=== PATIENT | female | born 1935 | race Caucasian/White ===

== ENCOUNTER → 2016-07-31 | Outpatient (CLI) | payer MEDICARE ==
[~2016-07-31] MED LIST: ACET-2267 PO; ATOR40TA PO; GLUC-144 PO; KCL20TCR PO; MULT-608 PO; NAPR250T34 PO; NF-ESOM40C PO; PANT20TA PO; SCR1T1 PO; SRTR100T PO; VITA1CAP21 PO
--- OUTSIDE RECORDS SUMMARY | 2016-07-31 10:32 | XMS REPORT | Continuity of Care Document ---
Author Author [facility] Organization [facility] Address Unknown Phone Unavailable Care Team Providers Care Battery Charger Name Role Phone JENNY ARREGUIN MD PCP Insurance Providers Payer Name Policy Number Subscriber Name Relationship [employer] Gold Choice [id number] Yuko Rivera 19 Self / Same As Patient Advance Directives Directive Response Recorded Date/Time Advance Directives No 12/26/14 12:08pm Health Care Power of Vacation Sales Advisor No 12/26/14 12:08pm Organ Donor No 12/26/14 12:08pm Resuscitation Status Full Code 12/26/14 12:08pm Problems No known problems or medical conditions. Medications Medication Dose Route Sig Days/Qty Instructions Order Date Discontinued Date Status Sertraline HCl 100 Mg PO DAILY 12/31/09 Active Esomeprazole Magnesium 1 Cap PO DAILY 12/31/09 12/26/14 Discontinued Atorvastatin Calcium 1 Each PO DAILY 12/31/09 12/26/14 Discontinued Multivitamins 1 Tab PO DAILY 12/31/09 12/26/14 Discontinued Naproxen 500 Mg PO TWICE A DAY 12/31/09 12/28/14 Discontinued Vitamin B Complex 1 Cap PO DAILY 12/26/14 12/28/14 Discontinued Potassium Chloride 40 Meq PO DAILY 60 Qty 12/26/14 Active Pantoprazole Sodium 40 Mg PO DAILY 90 Qty 12/27/14 Active Sucralfate 1 Gm PO FOUR TIMES DAILY 14 Days 12/27/14 Active Social History Social History Problem Response Recorded Date/Time Alcohol Use Denies Use 12/26/2014 1:57pm Recreational Drug Use No 12/26/2014 1:57pm Recent Foreign Travel No 12/26/2014 12:15pm Recent Infectious Disease Exposure No 12/26/2014 12:15pm Hospitalization with Isolation Denies 12/28/2014 11:17am Smoking Status Former Smoker 12/26/2014 1:57pm Do you dip or chew tobacco? No 12/26/2014 12:08pm Query Response Start Date Stop Date Smoking Status Former Smoker Hospital Discharge Instructions Patient Instructions Physician Instructions New, Converted, or Re-Newed RX: RX on Chart Follow Up Appt in 8 weeks Activity as tolerated High Fiber Diet 25g or more per day Avoid Alcohol, Caffeine, Spicy [place] and Acid foods. Drink 64 fluid oz or more of fluids per day. Symptoms to Report: Fever over 101 degree F, Nausea/Vomiting If any problems/questions: Contact your physician or go to Emergency Room Plan of Care Discharge Date 12/28/14 8:30am Disposition 30 STILL A PATIENT Instructions/Education Provided Diverticulitis (DC) Aplastic Anemia (DC) Forms Provided PDI Medical Prescriptions See Medications Section Referrals GIA PATRICIO MD (Unspecified) 2 Weeks Address: [address] [place] [address] Reason(s) for Referral: PLEASE CALL TO ARRANGE FOLLOW UP APPT. VANDANA DOOLEY APRN (Unspecified) 01/03/15 Address: [address] [place] [address] Reason(s) for Referral: 10:00AM Functional Status Query Response Date Recorded Patient Orientation Person Place Time Situation December 28, 2014 11:17am Allergies, Adverse Reactions, Alerts Allergen Type Severity Reaction Status Last Updated Sulfa (Sulfonamide Antibiotics) ([id number]) Allergy Unknown Active 08/07 strawberry ([id number]) Allergy Unknown Active 12/28/14 Immunizations Name Given Type Date of Pneumonia Vaccine 02/28/10 Historical Date of Influenza Vaccine 02/28/14 Historical Vital Signs Acute Vital Signs Vital Response Date/Time Temperature (Fahrenheit) 97.1 degrees F (97.6 - 99.5) Temperature (Calculated Celsius) 36.19253 degrees C (36.4 - 37.5) Temperature Source Temporal Pulse Rate (adult) 54 bpm (60 - 90) Respiratory Rate 17 bpm (12 - 24) O2 Sat by Pulse Oximetry 96 % (88 - 100) Blood Pressure 146/74 mm Hg Blood Pressure Mean 98 mm Hg Pain Pain Intensity 0 Height (Feet) 5 feet Height (Inches) 0.00 inches Height (Calculated Centimeters) 152.648435 cm Weight (Pounds) 121 pounds Weight (Calculated Grams) 30518.677 gm Weight (Calculated Kilograms) 54.040416 kilograms Calculated BMI 23.63 Results Laboratory Results Test Name Result Units Flags Reference Collection Date/Time Result Date/ Time Comments White Blood Count 7.1 10^3/uL 4.3-11.0 12/28/2014 4:12/28/2014 5: 36am Red Blood Count 3.82 10^6/uL L 4.35-5.85 12/28/2014 4:12/28/2014 5: 36am Hemoglobin 9.5 G/DL L 11.5-16.0 12/28/2014 4:12/28/2014 5:36am Hematocrit 30 % L 35-52 12/28/2014 4:12/28/2014 5:36am Mean Corpuscular Volume 79 FL L 80-99 12/28/2014 4:12/28/2014 5: 36am Mean Corpuscular Hemoglobin 25 PG 25-34 12/28/2014 4:12/28/2014 5: 36am Mean Corpuscular Hemoglobin Concent 32 G/DL 32-36 12/28/2014 4: 5:36am Red Cell Distribution Width 16.9 % H 10.0-14.5 12/28/2014 4:2014 5:36am Platelet Count 298 10^3/uL 130-400 12/28/2014 4:12/28/2014 5:36am Mean Platelet Volume 12.3 FL H 7.4-10.4 12/28/2014 4:12/28/2014 5: 36am Neutrophils (%) (Auto) 59 % 42-75 12/28/2014 4:12/28/2014 5:36am Lymphocytes (%) (Auto) 20 % 12-44 12/28/2014 4:12/28/2014 5:36am Monocytes (%) (Auto) 15 % H 0-12 12/28/2014 4:12/28/2014 5:36am Eosinophils (%) (Auto) 4 % 0-10 12/28/2014 4:12/28/2014 5:36am Basophils (%) (Auto) 1 % 0-10 12/28/2014 4:12/28/2014 5:36am Neutrophils # (Auto) 4.2 X 10^3 1.8-7.8 12/28/2014 4:12/28/2014 5: 36am Lymphocytes # (Auto) 1.4 X 10^3 1.0-4.0 12/28/2014 4:12/28/2014 5: 36am Monocytes # (Auto) 1.1 X 10^3 H 0.0-1.0 12/28/2014 4:12/28/2014 5: 36am Eosinophils # (Auto) 0.3 10^3/uL 0.0-0.3 12/28/2014 4:12/28/2014 5 :36am Basophils # (Auto) 0.1 10^3/uL 0.0-0.1 12/28/2014 4:12/28/2014 5: 36am Sodium Level 141 MMOL/L 135-145 12/28/2014 4:12/28/2014 5:46am Potassium Level 3.5 MMOL/L L 3.6-5.0 12/28/2014 4:12/28/2014 5:46am Chloride Level 114 MMOL/L H 98-107 12/28/2014 4:12/28/2014 5:46am Carbon Dioxide Level 19 MMOL/L L -12/28/2014 4:12/28/2014 5: 46am Anion Gap 8 MMOL/L 5-14 12/28/2014 4:12/28/2014 5:46am Blood Urea Nitrogen 15 MG/DL 7-18 12/28/2014 4:12/28/2014 5:46am Creatinine 0.73 MG/DL 0.60-1.30 12/28/2014 4:12/28/2014 5:46am BUN/Creatinine Ratio 12/28/2014 4:12/28/2014 5:46am Estimat Glomerular Filtration Rate > 60 12/28/2014 4:2014 5:46am GFR INTERPRETIVE DATA UNITS FOR ESTIMATED GFR (eGFR): mL/min/1.73 M2 REFERENCE RANGE FOR ESTIMATED GFR (eGFR) eGFR NORMAL eGFR >60 MODERATELY DECREASED eGFR 30-59 SEVERLY DECREASED eGFR 15-29 KIDNEY FAILURE <15 (OR DIALYSIS) Glucose Level 105 MG/DL 70-105 12/28/2014 4:2512/28/2014 5:46am Calcium Level 8.8 MG/DL 8.5-10.1 12/28/2014 4:12/28/2014 5:46am Magnesium Level 2.1 MG/DL 1.8-2.4 12/27/2014 5:1212/27/2014 5:39am Total Bilirubin 0.5 MG/DL 0.1-1.0 12/28/2014 4:12/28/2014 5:46am Alkaline Phosphatase 109 U/L 40-136 12/28/2014 4:12/28/2014 5: 46am Aspartate Amino Transf (AST/SGOT) 25 U/L 5-34 12/28/2014 4:2014 5:46am Alanine Aminotransferase (ALT/SGPT) 16 U/L 0-55 12/28/2014 4:12/28 5:46am Total Protein 6.3 G/DL L 6.4-8.2 12/28/2014 4:12/28/2014 5:46am Albumin 3.4 G/DL 3.2-4.5 12/28/2014 4:2512/28/2014 5:46am Procedures Procedure Status Date Provider(s) Esophagogastroduodenoscopy (EGD) with dilation completed 12/27/14 GIA PATRICIO MD Encounters Encounter Location Date/Time Admitted Inpatient Via [facility] 12/26/14 12:02pm
== END ==
LOC: CARD 10:28
PROVIDERS: ATTEND Internal Medicine
DX: R55 Syncope and collapse (principal); R53.83 Other fatigue
CPT/HCPCS: 93005; 93225; 93226

== ENCOUNTER → 2016-08-18 | Outpatient (CLI) | payer MEDICARE | LOC: RAD 14:25 | PROVIDERS: ATTEND Internal Medicine Cardiovascular Disease | DX: I70.213 Atherosclerosis of native arteries of extremities with intermittent claudication, bilateral legs (principal); R55 Syncope and collapse; R07.89 Other chest pain; R94.31 Abnormal electrocardiogram [ECG] [EKG]; R26.89 Other abnormalities of gait and mobility; Z82.49 Family history of ischemic heart disease and other diseases of the circulatory system; Z87.891 Personal history of nicotine dependence; Z96.653 Presence of artificial knee joint, bilateral | CPT/HCPCS: 93923 ==

== ENCOUNTER → 2016-08-31 | Outpatient (CLI) | payer MEDICARE ==
--- NOTE | 2016-09-03 08:36 | ECHOCARDIOGRAPHY REPORT ---
PROCEDURE PHYSICIAN: JOE ZELAYA DATE OF PROCEDURE: 08/31/2016 TWO DIMENSIONAL ECHOCARDIOGRAM REPORT PRIMARY PHYSICIAN: Dr. Blanco OTHER PHYSICIAN: REFERRING PHYSICIAN: ORDERING PHYSICIAN: Dr. Zelaya INDICATION FOR THE PROCEDURE: 1. Chest discomfort. 2. Near syncope. MEASUREMENTS DERIVED VALUES LV DIAMETER (LAX) NORMALS NORMALS Diastolic 3.4 (3.6-5.2) Eject. Fract. (60%+/-6%) Systolic (2.3-3.9) Diastolic Vol. % Shortening (0.22-0.42) Systolic Vol. Aortic Root 2.9 IVS THICKNESS Diastolic 1 (0.6-1.1) LVPW THICKNESS Diastolic 0.8 (0.6-1.1) LA DIAMETER Systolic 2.9 (2.1-3.7) DESCRIPTION: Two-dimensional echocardiography shows normal global left ventricular systolic function with an ejection fraction of approximately 60 to 65%. Aortic, mitral, and tricuspid valve leaflets show good leaflet excursion. The interventricular septum is sigmoid in shape. However, there does not appear to be evidence of left ventricular outflow tract obstruction. Doppler imaging shows trivial, mitral and tricuspid regurgitation. There is no Doppler evidence of any significant valvular stenosis. Pulmonary artery systolic pressure is estimated to be approximately 25 to 30 mmHg. Mitral inflow is consistent with grade 1 diastolic dysfunction of the left ventricle. CONCLUSIONS: 1. Normal global left ventricular systolic function with an ejection fraction of approximately 60 to 65%. 2. Trivial, mitral and tricuspid regurgitation. 3. Pulmonary artery systolic pressure is estimated to be 20 to 30 mmHg. 4. Mild diastolic dysfunction of the left ventricle. Job ID: [id number] Dictated Date: 09/02/2016 17:20:09 Chain Maker Hand Date: 09/03/2016 08:32:07 / nilam
== END ==
LOC: CARD 11:29
PROVIDERS: ATTEND Internal Medicine Cardiovascular Disease
DX: R07.89 Other chest pain (principal); R26.89 Other abnormalities of gait and mobility; R94.31 Abnormal electrocardiogram [ECG] [EKG]; R55 Syncope and collapse; Z82.49 Family history of ischemic heart disease and other diseases of the circulatory system; Z87.891 Personal history of nicotine dependence; Z96.653 Presence of artificial knee joint, bilateral
CPT/HCPCS: 93306

== ENCOUNTER → 2016-09-01 | Outpatient (CLI) | payer MEDICARE ==
[~2016-09-01] MED LIST changes: +CATHETER FLUSH 10 ML SYR IV PRN; +REGADENOSON 0.4 MG/5 ML SYR (LEXISCAN) IV ONE
[2016-09-01 13:12] VITALS: BP 150/74
[2016-09-01 14:03] VITALS: BP 134/79
--- NOTE | 2016-09-03 11:01 | STRESS TEST ---
PROCEDURE PHYSICIAN: JOE ESPARZA RESTING AND POST REGADENOSON TECHNETIUM 99M TETROFOSMIN SPECT CT IMAGING DATE OF PROCEDURE: 09/01/2016 Baseline images were carried out after injection of 10.33 mCi technetium 99m tetrofosmin. This was followed by 0.4 mg regadenoson 30.3 mCi technetium 99m tetrofosmin for stress imaging. The electrocardiogram showed sinus rhythm with right bundle branch block at baseline. This did not change significantly with regadenoson confusion. Review of images at rest and following stress, does not indicate any distinct perfusion defects consistent with significant myocardial ischemia or infarction. Gated images show normal global left ventricular function with normal regional wall motion. Left ventricular ejection fraction is calculated to be 73%. Left ventricular end-diastolic volume is 28 mL. TID is absent (0.81). CONCLUSION: 1. No evidence of significant myocardial ischemia or infarction on this study. 2. Normal regional wall motion. 3. Normal global left ventricular systolic function with a calculated ejection fraction of 73%. Job ID: [id number] Dictated Date: 09/03/2016 09:22:00 Wall Insulation Sprayer Date: 09/03/2016 10:57:43 / imelda
== END ==
LOC: CARD 11:27
PROVIDERS: ATTEND Internal Medicine Cardiovascular Disease
DX: R55 Syncope and collapse (principal); R07.89 Other chest pain; R94.31 Abnormal electrocardiogram [ECG] [EKG]; R26.89 Other abnormalities of gait and mobility; Z82.49 Family history of ischemic heart disease and other diseases of the circulatory system; Z87.891 Personal history of nicotine dependence; Z96.653 Presence of artificial knee joint, bilateral
CPT/HCPCS: 78452; 93017

== ENCOUNTER → 2017-03-12 | Outpatient (CLI) | payer MEDICARE ==
[~2017-03-12] MED LIST changes: -CATHETER FLUSH 10 ML SYR IV PRN; -REGADENOSON 0.4 MG/5 ML SYR (LEXISCAN) IV ONE
--- NOTE | 2017-03-12 13:04 | Diagnostic Imaging Report ---
Bilateral screening mammogram 2D views with tomosynthesis. The current study was also evaluated with a Computer Aided Detection (CAD) system. INDICATION: Screening. No current complaints stated on the questionnaire. COMPARISON: 03/11/16. FINDINGS: The breasts are composed of heterogeneously dense parenchyma which may decrease mammographic sensitivity. Scattered benign-appearing calcifications are seen. Allowing for technique and positional differences, no suspicious change is seen. IMPRESSION: Dense breasts with no definite change. ACR BI-RADS Category 2: Benign findings. Result letter will be mailed to the patient. Note: At least 10% of breast cancer is not imaged by mammography. Dictated on workstation # [id number]
== END ==
LOC: RAD 10:23
PROVIDERS: ATTEND Nurse Practitioner
DX: Z12.31 Encounter for screening mammogram for malignant neoplasm of breast (principal)
CPT/HCPCS: 77067

== ENCOUNTER → 2017-05-17 | Outpatient (CLI) | payer MEDICARE ==
[2017-05-17 16:04] LABS: BASOPHILS # (AUTO) 0.1 10^3/uL (0.0-0.1); BASOPHILS % (AUTO) 2 % (0-10); EOSINOPHILS # (AUTO) 0.2 10^3/uL (0.0-0.3); EOSINOPHILS % (AUTO) 3 % (0-10); LYMPHOCYTES # (AUTO) 2.5 X 10^3 (1.0-4.0); LYMPHOCYTES % (AUTO) 41 % (12-44); MEAN CORPUSCULAR HEMOGLOBIN 25 PG (25-34); MEAN CORPUSCULAR HGB CONC 31 G/DL (32-36); MEAN CORPUSCULAR VOLUME 80 FL (80-99); MEAN PLATELET VOLUME 12.1 FL (7.4-10.4); MONOCYTES # (AUTO) 0.9 X 10^3 (0.0-1.0); MONOCYTES % (AUTO) 14 % (0-12); NEUTROPHILS # (AUTO) 2.5 X 10^3 (1.8-7.8); NEUTROPHILS % (AUTO) 40 % (42-75); PLATELET COUNT 254 10^3/uL (130-400); RED BLOOD COUNT 3.62 10^6/uL (4.35-5.85); RETICULOCYTE % 0.79 % (0.50-2.40); WHITE BLOOD COUNT 6.2 10^3/uL (4.3-11.0)
[2017-05-17 16:43] LABS: ANISOCYTOSIS SLIGHT; BAND NEUTROPHILS 0 %; BASOPHILS % (MANUAL) 2 %; EOSINOPHILS % (MANUAL) 4 %; HYPOCHROMASIA SLIGHT; LYMPHOCYTES % (MANUAL) 46 %; NEUTROPHILS % (MANUAL) 42 %
[2017-05-18 07:06] LABS: FERRITIN 8.0 L NG/ML (15.0-150.0)
[2017-05-19 08:03] LABS: %SAT TOTAL IRON BINDING CAPIC 4 L % (15-50); TIBC 465 H UG/DL (280-380); UIBC 446 UG/DL (55-450)
== END ==
LOC: LAB 15:29
PROVIDERS: ATTEND Internal Medicine
DX: D64.9 Anemia, unspecified (principal)
CPT/HCPCS: 36415; 82728; 83540; 83550; 85007; 85027; 85045

== ENCOUNTER → 2018-03-14 | Outpatient (CLI) | payer MEDICARE ==
--- NOTE | 2018-03-14 12:28 | Diagnostic Imaging Report ---
INDICATION: Routine screening. COMPARISON: 03/12/2017 and 03/11/2016. TECHNIQUE: 2D and 3D bilateral screening mammography was performed with CAD. FINDINGS: Both breasts are heterogeneously dense, limiting the sensitivity of mammography. Benign-appearing parenchymal and vascular calcifications are identified bilaterally. There is a density in the right breast MLO view noted at or just below the nipple line at posterior depth which appears slightly more prominent when compared to the prior exam. Additional views are recommended. This appears to be laterally located on the tomographic imaging. No other suspicious abnormality is seen. There are scattered benign calcifications. No malignant appearing microcalcifications are seen. The axillae are unremarkable. IMPRESSION: Right breast density. Additional views including spot compression and mediolateral views are recommended for further evaluation. ACR BI-RADS Category 0: Incomplete. (Needs additional imaging evaluation). Result letter will be mailed to the patient. Note: At least 10% of breast cancer is not imaged by mammography. Dictated by: Dictated on workstation # [id number]
== END ==
LOC: RAD 09:40
PROVIDERS: ATTEND Internal Medicine
DX: Z12.31 Encounter for screening mammogram for malignant neoplasm of breast (principal); R92.8 Other abnormal and inconclusive findings on diagnostic imaging of breast
CPT/HCPCS: 77067

== ENCOUNTER → 2018-04-04 | Outpatient (CLI) | payer MEDICARE ==
--- NOTE | 2018-04-05 19:40 | Diagnostic Imaging Report ---
Indication: Abnormal screening mammogram demonstrating a right breast density. The study is performed for further evaluation. Correlation is made with recent screening study from 03/14/2018. Unilateral right 2-D and 3-D diagnostic mammography was performed. This included conventional 90 degree lateral view as well as spot compression MLO view. The density noted in the right breast at the nipple line posterior depth is not appreciated on the spot compression or ML view. This appeared to be laterally located on the tomographic views. No abnormality is seen on additional imaging. There are benign calcifications. Impression: BI-RADS 0. No suspicious abnormality is identified. Even so, sonography interrogation of the lateral right breast is recommended for further evaluation. ACR BI-RADS Category 0: Incomplete. (Needs additional imaging evaluation). Result letter will be mailed to the patient. Note: At least 10% of breast cancer is not imaged by mammography. Dictated by: Dictated on workstation # [id number]
--- NOTE | 2018-04-05 19:40 | Diagnostic Imaging Report ---
Indication: Right breast density. Correlation is made with screening mammogram from 03/14/2018 as well as diagnostic mammogram from earlier the same day. Sonographic interrogation of the outer right breast was performed. No sonographic abnormality is seen. No solid or cystic mass is detected. Impression: BI-RADS category 1. No sonographic abnormality is seen. The patient may return to routine annual screening mammography. ACR BI-RADS Category 1: Negative. Result letter will be mailed to the patient. Note: At least 10% of breast cancer is not imaged by mammography. Dictated by: Dictated on workstation # [id number]
== END ==
LOC: RAD 13:56
PROVIDERS: ATTEND Physician Assistant
DX: R92.2 Inconclusive mammogram (principal)

== ENCOUNTER → 2018-08-22 | Outpatient (CLI) | payer MEDICARE ==
--- NOTE | 2018-08-22 10:40 | Diagnostic Imaging Report ---
INDICATION: Increased liver enzymes TECHNIQUE: Multiple grayscale sonographic images were obtained of the right upper quadrant of the abdomen. CORRELATION STUDY: None FINDINGS: LIVER: There is uniform echotexture within the visualized portions of the liver. There is normal, hepatopedal direction of flow within the main portal vein. Liver length at 16.9 cm, normal. GALLBLADDER: The gallbladder demonstrates no definitive shadowing gallstones. No abnormal gallbladder wall thickening or pericholecystic fluid. COMMON BILE DUCT: Nondilated at 4 mm. PANCREAS: Visualized portions appearing unremarkable. RIGHT KIDNEY: Measures 10.1 x 4.3 x 5.7 cm. No hydronephrosis. AORTA/IVC: Not well visualized. OTHER: None. IMPRESSION: 1. Negative appearing right upper quadrant abdominal ultrasound. Dictated by: Dictated on workstation # [id number]
== END ==
LOC: RAD 08:17
PROVIDERS: ATTEND Internal Medicine
DX: R94.5 Abnormal results of liver function studies (principal)
CPT/HCPCS: 76705

== ENCOUNTER → 2019-04-04 | Outpatient (CLI) | payer MEDICARE ==
--- NOTE | 2019-04-04 16:22 | Diagnostic Imaging Report ---
INDICATION: Screening TECHNIQUE: The current study was also evaluated with a Computer Aided Detection (CAD) system. 3D Tomographic imaging was also performed. 3D tomosynthesis was performed and reviewed. COMPARISON: 03/14/2018, 03/12/2017, and 03/12/2016. FINDINGS: The fibroglandular tissue is heterogeneously dense bilaterally. There are extensive benign type and vascular calcifications. There is no dominant mass, spiculated lesion, or suspicious calcification identified. The skin, nipples, and axillae are unremarkable. IMPRESSION: Benign findings. ACR BI-RADS Category 2: Benign findings. Result letter will be mailed to the patient. Note: At least 10% of breast cancer is not imaged by mammography. Dictated by: Dictated on workstation # [id number]
== END ==
LOC: RAD 13:19
PROVIDERS: ATTEND Internal Medicine
DX: Z12.31 Encounter for screening mammogram for malignant neoplasm of breast (principal)
CPT/HCPCS: 77067

== ENCOUNTER 2020-02-19 05:48 | Outpatient (RCR) | payer MEDICARE ==
[~2020-02-19] VITALS: Ht 152 cm; Wt 53.1 kg
[~2020-02-19 05:48] MED LIST changes: +ASCO500C17 PO; +CHOL20002 PO; +CRAN500T2 PO; +FERR-84 PO; +FOLI0.8C PO; +PANT20TA18 PO; +POTA20TA15 PO; +SERT100T8 PO; +SUCR1TAB PO
== END 2020-02-19 09:49 | disposition home or self-care (01) ==
LOC: PREOP 05:48
PROVIDERS: ATTEND Surgery
DX: Z01.812 Encounter for preprocedural laboratory examination (principal); Z20.828 Contact with and (suspected) exposure to other viral communicable diseases
CPT/HCPCS: 87635

== ENCOUNTER 2020-02-21 08:35 | Day surgery (SDC) | payer MEDICARE ==
[~2020-02-21] VITALS: Ht 152 cm; Wt 53.1 kg
[2020-02-21] VITALS (10 sets, daily range): BP systolic 107–177; BP diastolic 55–99
[2020-02-21] MEDS ORDERED: NS IV 500 ML 500 ML ONE ×2 (08:45→10:08)
[2020-02-21] MEDS ORDERED: HURRICAINE EXT TUBE (BENZOCAINE) XX PRN (08:45)
[2020-02-21] MEDS ORDERED: fentaNYL INJECTION 100 MCG/2 ML AMP IVP ONE (08:45)
[2020-02-21] MEDS ORDERED: LIDOCAINE JELLY 2% 6 ML SYRINGE MM PRN (08:45)
[2020-02-21] MEDS: NS IV 500 ML 500 ML IV PRN ×2 (09:00→10:08)
--- NOTE | 2020-02-21 10:00 | Conscious Sedation/ASA ---
Conscious Sedation Pre-Proced Time 09:30 ASA Score 2 For ASA 3 and 4: Consider anesthesia and medical clearance. Also, for patients with a history of failed moderate sedation consider anesthesia. Airway Lungs Heart ASA score ASA 1: a normal healthy patient ASA 2: a patient with a mild systemic disease (mid diabetes, controlled hypertension, obesity ASA 3: a patient with a severe systemic disease that limits activity (angina, COPD, prior Myocardial infarction) ASA 4: a patient with an incapacitating disease that is a constant threat to life (CHF, renal failure) ASA 5: a moribund patient not expected to survive 24 hrs. (ruptured aneurysm) ASA 6: a declared brain- patient whose organs are being harvested. For emergent operations, add the letter E after the classification Mallampati Classification Grade 2 Sedation Plan Analgesia, Amnesia, Plan communicated to team members, Discussed options with patient/fam, Discussed risks with patient/fam The patient is an appropriate candidate to undergo the planned procedure, sedation, and anesthesia. The patient immediately re-assessed prior to indication. GIA PATRICIO MD Feb 21, 2020 10:00
--- NOTE | 2020-02-21 10:01 | Progress Note-Pre Operative ---
Pre-Operative Progress Note H&P Reviewed The H&P was reviewed, patient examined and no changes noted. Date Seen by Provider: Feb 21, 2020 Time Seen by Provider: : Date H&P Reviewed: Feb 21, 2020 Time H&P Reviewed: : Pre-Operative Diagnosis: GERD, hx wadsworth's GIA PATRICIO MD Feb 21, 2020 10:01
--- NOTE | 2020-02-21 10:02 | Discharge Inst-Surgical ---
D/C Lap Instructions-SINTIA Follow Up Activity as tolerated High Fiber Diet 25g or more per day Avoid Alcohol, Caffeine, Spicy [place] and Acid foods. Drink 64 fluid oz or more of fluids per day. Symptoms to Report: Fever over 101 degree F, Nausea/Vomiting If any problems/questions: Contact your physician or go to Emergency Room GIA PATRICIO MD Feb 21, 2020 10:02
[2020-02-21] MEDS ORDERED: LIDOCAINE JELLY 2% 6 ML SYRINGE ONE (10:07)
[2020-02-21] MEDS ORDERED: MIDAZOLAM 5 MG/5 ML (VERSED) VIAL ONE (10:07)
[2020-02-21] MEDS ORDERED: fentaNYL INJECTION 100 MCG/2 ML AMP ONE (10:07)
[2020-02-21] MEDS ORDERED: HURRICAINE EXT TUBE (BENZOCAINE) ONE (10:08)
[2020-02-21] MEDS ORDERED: morphine INJ 10 MG/ML 1ML (SYR OR VIAL) IVP PRN ×2 (10:15)
[2020-02-21] MEDS ORDERED: ACETAMINOPHEN 325 MG TABLET PO PRN (10:15)
[2020-02-21] MEDS ORDERED: HYDROcodone/APAP 5 MG/325 MG (LORTAB) TAB PO PRN (10:15)
[2020-02-21] MEDS ORDERED: ONDANSETRON 4 MG/2 ML (SDV) Z0FRAN IVP PRN (10:15)
[2020-02-21] MEDS: MIDAZOLAM 5 MG/5 ML (VERSED) VIAL IV PRN ×3 (10:19→10:25)
[2020-02-21] MEDS ORDERED: OMEP40CA27 PO (11:07)
--- NOTE | 2020-02-21 11:41 | Progress Note-Post Operative ---
Post-Operative Progess Note Surgeon (s)/Parliamentary Librarian (s) Surgeon GIA PATRICIO MD Parliamentary Librarian: none Pre-Operative Diagnosis GERD, hx wadsworth's Post-Operative Diagnosis reflux esophagitis(stage 3 with clinical barretts), large HH(5cm), moderate gastritis. Procedure & Operative Findings Date of Procedure 02/21/20 Procedure Performed/Findings EGD with bx. Anesthesia Type cs Estimated Blood Loss Estimated blood loss (mL): minimal Specimens/Packing Specimens Removed ge jxn, antrum GIA PATRICIO MD Feb 21, 2020 11:41
--- NOTE | 2020-02-21 15:03 | OPERATIVE REPORT ---
DATE OF SERVICE: 02/21/2020 ATTENDING PRIMARY CARE PHYSICIAN: Dr. Westley Blanco. PREOPERATIVE DIAGNOSES: Reflux esophagitis, history of hiatal hernia, history of Roona's esophagus. 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 Moderate gastritis. PROCEDURE: EGD with biopsy. SURGEON: Dr. Patricio. ANESTHESIA: Conscious sedation. ESTIMATED BLOOD LOSS: Minimal. 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 Moderate gastritis. DISPOSITION: The patient tolerated the procedure well. INDICATIONS: The patient is an 84-year-old female with history of gastroesophageal reflux disease as well as a biopsy-proven Orona's esophagus. We had done previous endoscopy on her before where she was found to have a pyloric ulcer as well as significant reflux esophagitis and hiatal hernia. She does report worsening symptoms of reflux. DESCRIPTION OF PROCEDURE: The patient was brought to the endoscopy suite, laid in the left lateral decubitus position. After adequate IV pain and sedative medications and conscious sedation anesthesia, the mouthpiece was applied. The endoscope was then placed in the mouth, visualizing the pharynx and hypopharyngeal region. Vocal cords, epiglottis and vallecula identified and appeared to be normal. The endoscope was then gently intubated into the esophageal opening and esophagus insufflated. The endoscope was then advanced through the first, second and third portion of the esophagus. The GE junction was rather high, indicating most likely a hiatal hernia with the GE junction within the mediastinum. There was a reflux esophagitis stage III and clinical Orona's identified. Multiple biopsies were taken with forceps with visualization of good hemostasis. The endoscope was then advanced in the stomach and endoscope retroflexed, visualizing a large hiatal hernia approximately 5 cm or greater in size. There was a moderate gastritis. No formal ulcerations, polyps, or any neoplasms. A biopsy was taken of the antrum to rule out H. pylori with visualization of good hemostasis. The endoscope was then advanced through the pylorus and the duodenum, which appeared normal with no ulcerations or any distal obstructions. The endoscope was then slowly withdrawn while taking a second look and suctioning of residual air with no additional findings. The patient tolerated the procedure well. We will recommend conservative medical therapy for her Orona's esophagus, reflux esophagitis, large hiatal hernia and gastritis including smoking cessation as well as avoidance of caffeinated beverages, spicy, greasy and acidic foods. She also needs to take in small and more frequent meals and avoid eating at night. She is currently on pantoprazole 40 mg b.i.d.; however, we will recommend that she can tolerate that once a day and then we will also add omeprazole 40 mg daily and she has also taken Carafate p.r.n., which we will recommend that she continues as well. Job ID: [id number] DocumentID: [id number] Dictated Date: 02/21/2020 10:44:26 Marketing Compliance Manager Date: 02/21/2020 15:02:59 Dictated By: GIA PATRICIO MD
== END 2020-02-21 11:35 | disposition home or self-care (01) ==
LOC: ENDO 08:35
PROVIDERS: ATTEND Surgery
DX: K21.0 Gastro-esophageal reflux disease with esophagitis (principal); K29.50 Unspecified chronic gastritis without bleeding; K44.9 Diaphragmatic hernia without obstruction or gangrene; K22.70 Barrett's esophagus without dysplasia; D50.9 Iron deficiency anemia, unspecified; E78.00 Pure hypercholesterolemia, unspecified; F32.9 Major depressive disorder, single episode, unspecified; M19.90 Unspecified osteoarthritis, unspecified site; Z79.899 Other long term (current) drug therapy; Z88.2 Allergy status to sulfonamides; Z91.018 Allergy to other foods; Z87.11 Personal history of peptic ulcer disease; Z87.891 Personal history of nicotine dependence; Z90.710 Acquired absence of both cervix and uterus; Z83.3 Family history of diabetes mellitus; Z80.0 Family history of malignant neoplasm of digestive organs; Z80.1 Family history of malignant neoplasm of trachea, bronchus and lung; Z80.8 Family history of malignant neoplasm of other organs or systems; Z82.49 Family history of ischemic heart disease and other diseases of the circulatory system
CPT/HCPCS: 88305

== ENCOUNTER → 2020-04-11 | Outpatient (CLI) | payer MEDICARE ==
[~2020-04-11] MED LIST changes: +OMEP40CA27 PO
--- NOTE | 2020-04-11 17:08 | Diagnostic Imaging Report ---
INDICATION: Routine screening. COMPARISON is made with prior mammograms 04/04/2019 and 03/14/2018. 2-D and 3-D bilateral screening mammography was performed with CAD. Both breasts are heterogeneously dense, limiting the sensitivity of mammography. No mass or malignant appearing microcalcifications are seen. Benign calculations are again noted. Axillae are unremarkable. IMPRESSION: BI-RADS Category 2 No mammographic features suspicious for malignancy are identified. ACR BI-RADS Category 2: Benign findings. Result letter will be mailed to the patient. Note: At least 10% of breast cancer is not imaged by mammography. Dictated by: Dictated on workstation # [id number]
== END ==
LOC: RAD 10:45
PROVIDERS: ATTEND Internal Medicine
DX: Z12.31 Encounter for screening mammogram for malignant neoplasm of breast (principal)
CPT/HCPCS: 77063; 77067

== ENCOUNTER → 2020-05-13 | Outpatient (CLI) | payer MEDICARE ==
--- NOTE | 2020-05-13 09:38 | Diagnostic Imaging Report ---
PROCEDURE: US Hepatic (Liver). TECHNIQUE: Multiple real-time grayscale images were obtained over the right upper quadrant in various projections. INDICATION: Elevated liver function tests The previous hepatic ultrasound exam of 08/22/2018 failed to show any abnormality of the liver. On this exam the liver is not enlarged. There is no focal mass involving the liver and the biliary tree is not abnormally dilated. Spectral color-flow imaging of the portal vein shows the portal vein is patent. In the interval since the prior exam the patient has undergone a cholecystectomy. The common bile duct was not well-visualized. The pancreas is also obscured by bowel gas. The right kidney, the aorta and inferior vena cava where visualized are unremarkable. IMPRESSION: 1. There has been interval cholecystectomy. The common bile duct was not well-visualized but the proximal biliary tree does not appear to be dilated. If further evaluation of the common bile duct is desired, either CT of the abdomen and pelvis or MRCP would be recommended. 2. There is no acute abnormality of the right upper quadrant. Dictated by: Dictated on workstation # [id number]
== END ==
LOC: RAD 08:00
PROVIDERS: ATTEND Internal Medicine
DX: R94.5 Abnormal results of liver function studies (principal); Z90.49 Acquired absence of other specified parts of digestive tract; Z20.828 Contact with and (suspected) exposure to other viral communicable diseases
CPT/HCPCS: 76705

== ENCOUNTER → 2020-09-05 | Outpatient (CLI) | payer MEDICARE ==
[~2020-09-05] MED LIST changes: +SERT-414 PO; -SERT100T8 PO
--- NOTE | 2020-09-05 14:47 | Diagnostic Imaging Report ---
INDICATION: Arthritis and elevated alkaline phosphatase. Time of exam 11:23 AM 3 views of each hand were obtained. Left hand shows severe degenerative changes at the 1st CMC joint with chondrocalcinosis of the triangular cartilage complex. There is significant degenerative changes at the MCP joints of the 1st, 2nd and 3rd levels. There is marked interphalangeal joint degenerative changes involving PIP and DIP joints. No definite osseous erosive changes are seen. There are similar findings of the right hand but more severe. There are significant degenerative changes 1st CMC joint of the carpus. There is significant degenerative changes of the 2nd and 3rd MCP joints. There are significant PIP and DIP joint degenerative changes without osseous erosive changes. There are no fractures. IMPRESSION: Significant osteoarthritic changes involving bilateral hands. Dictated by: Dictated on workstation # [id number]
== END ==
LOC: RAD 11:00
PROVIDERS: ATTEND Internal Medicine
DX: M19.042 Primary osteoarthritis, left hand (principal); M19.041 Primary osteoarthritis, right hand

== ENCOUNTER → 2020-09-24 | Outpatient (CLI) | payer MEDICARE ==
--- NOTE | 2020-09-24 13:51 | Diagnostic Imaging Report ---
PROCEDURE: MR imaging cholangiography-pancreatography. TECHNIQUE: Multiplanar imaging of the abdomen was performed on a 1.5 Fabienne magnet without contrast. 3D reconstructions were made for the MRCP INDICATION: Elevated liver function tests. Abnormal gallbladder ultrasound. COMPARISON: Right upper quadrant ultrasound 05/13/2020. FINDINGS: The liver measures approximately 15 cm in craniocaudal length. There is subtle nodularity to liver surface raising possibility of cirrhosis. No focal mass lesion seen on noncontrast imaging. The gallbladder is appropriately positioned within the gallbladder fossa has no filling defects would indicate choledocholithiasis. No intrahepatic or extrahepatic biliary duct dilatation. The common bile duct measures approximately 0.4 cm. There are no filling defects which is choledocholithiasis. There is no dilation of the main pancreatic duct. No ascites. The kidneys have no hydronephrosis. Spleen is normal. Pancreas is grossly normal as well on noncontrast imaging. No adrenal mass. Rotatory levoscoliosis is present. IMPRESSION: 1. Subtle nodularity to liver surface raises the possibility of cirrhosis. 2. Gallbladder has not been removed and is normal in appearance. No cholelithiasis. 3. No intrahepatic or extrahepatic biliary duct dilatation. No choledocholithiasis. Dictated by: Dictated on workstation # [id number]
== END ==
LOC: RAD 11:00
PROVIDERS: ATTEND Internal Medicine
DX: K76.89 Other specified diseases of liver (principal); R94.5 Abnormal results of liver function studies
CPT/HCPCS: 74181

== ENCOUNTER → 2021-04-14 | Outpatient (CLI) | payer MEDICARE ==
[~2021-04-14] MED LIST changes: -CRAN500T2 PO; +CRAN500T3 PO; -OMEP40CA27 PO; +OMEP40CA6 PO
--- NOTE | 2021-04-14 13:36 | Diagnostic Imaging Report ---
INDICATION: Routine screening. COMPARISON: 04/11/2020 and 04/04/2019. TECHNIQUE: 2D and 3D bilateral screening mammography was performed with CAD. FINDINGS: Both breasts are heterogeneously dense, limiting the sensitivity of mammography. Scattered benign parenchymal and vascular calcifications are noted bilaterally. No mass or malignant-appearing microcalcifications are seen. The axillae are unremarkable. IMPRESSION: No mammographic features suspicious for malignancy are identified. ACR BI-RADS Category 2: Benign findings. Result letter will be mailed to the patient. Note: At least 10% of breast cancer is not imaged by mammography. Dictated by: Dictated on workstation # [id number]
== END ==
LOC: RAD 10:00
PROVIDERS: ATTEND Internal Medicine
DX: Z12.31 Encounter for screening mammogram for malignant neoplasm of breast (principal)
CPT/HCPCS: 77063; 77067

== ENCOUNTER → 2022-04-14 | Outpatient (CLI) | payer MEDICARE ==
[~2022-04-14] MED LIST changes: -CRAN500T3 PO; +CRAN500T4 PO; +POTA-179 PO; -POTA20TA15 PO
--- NOTE | 2022-04-14 16:42 | Diagnostic Imaging Report ---
INDICATION: Routine screening. COMPARISON: 04/14/2021 and 04/11/2020. TECHNIQUE: 2D and 3D bilateral screening mammography was performed with CAD. FINDINGS: Both breasts are heterogeneously dense, limiting the sensitivity of mammography. Scattered benign parenchymal and vascular calcifications are noted bilaterally. No mass or malignant-appearing microcalcifications are seen. The axillae are unremarkable. IMPRESSION: No mammographic features suspicious for malignancy are identified. ACR BI-RADS Category 2: Benign findings. Result letter will be mailed to the patient. Note: At least 10% of breast cancer is not imaged by mammography. Dictated by: Dictated on workstation # [id number]
== END ==
LOC: RAD 13:48
PROVIDERS: ATTEND Internal Medicine
DX: Z12.31 Encounter for screening mammogram for malignant neoplasm of breast (principal)
CPT/HCPCS: 77063; 77067